=== PATIENT | female | born 1980 | race Caucasian/White ===

== ENCOUNTER 2019-06-28 06:24 | Emergency (ER) | payer SELFPAY ==
--- NOTE | 2019-06-28 07:23 | ER Document Report ---
ED Medical Screen (RME) - General Chief Complaint: Rib Pain Stated Complaint: RIB PAIN Time Seen by Provider: 06/28/19 07:22 Mode of Arrival: Ambulatory Information source: Patient Notes: Patient presents to the emergency department with complaints of left-sided rib pain. Reports she was bending over the couch on Friday night and felt her ribs pop she is had pain since that time. Denies past medical history of injury to the ribs. Patient speaking in complete sentences respiratory rate even unlabored. I have greeted and performed a rapid initial assessment of this patient. A com prehensive ED assessment and evaluation of the patient, analysis of test results and completion of the medical decision making process will be conducted by additional ED providers. Dictation of this chart was performed using voice recognition software; therefore, there may be some unintended grammatical errors. Past Medical History - Social History Frequency of alcohol use: Occasional Physical Exam - Vital signs Vitals: Temp Pulse Resp BP Pulse Ox 98.0 F 65 20 121/64 100 06/28/19 06:28 06/28/19 06:28 06/28/19 06:28 06/28/19 06:28 06/28/19 06:28 Course - Vital Signs Vital signs: Temp Pulse Resp BP Pulse Ox 98.0 F 65 20 121/64 100 06/28/19 06:28 06/28/19 06:28 06/28/19 06:28 06/28/19 06:28 06/28/19 06:28
[2019-06-28] MEDS ORDERED: IBUPROFEN 800 MG TABLET PO ONE (07:45)
--- NOTE | 2019-06-28 08:18 | RADIOLOGY REPORT (SQ) ---
EXAM DESCRIPTION: RIBS LEFT W/PA CHEST COMPLETED DATE/TIME: 06/28/2019 7:45 am REASON FOR STUDY: pain COMPARISON: None. TECHNIQUE: Frontal view of the chest and additional views of the left ribs acquired. NUMBER OF VIEWS: Three view. LIMITATIONS: None. FINDINGS: FRONTAL CXR: No pneumothorax. No pleural effusion. No atelectasis or infiltrates. RIBS: No displaced rib fractures. No lytic or blastic bony lesions. OTHER: No other significant finding. IMPRESSION: No displaced rib fractures or other radiographic abnormality to explain pain. No pneumo thorax or pleural effusion. COMMENT: SITE OF TRAUMA/COMPLAINT MARKED/STAMP COMPLETED: YES. TECHNICAL DOCUMENTATION: JOB ID: [id number] [employer]- All Rights Reserved Reading location - IP/workstation name: [email or web address]
[2019-06-28] MEDS ORDERED: METHOCARBAMOL 500 MG TABLET PO ONE (08:52)
--- NOTE | 2019-06-28 08:52 | ER Document Report ---
HPI - HPI Time Seen by Provider: 06/28/19 07:22 Pain Level: 4 Context: Patient is a 38-year-old female who presents to the emergency department with a chief complaint of chest wall pain. Patient states Friday she was leaning over the back of the couch when she felt a discomfort to the anterior aspect of the left chest wall. Patient reports she felt a pop and heard a crack. Patient states since then she has had extreme tenderness over the area. Patient reports the pain is worse with movement, deep breath or cough. Patient denies fever. Patient denies shortness of breath. - REPRODUCTIVE Reproductive: DENIES: : - MUSCULOSKELETAL Musculoskeletal: REPORTS: Extremity pain Past Medical History - General Information source: Patient - Social History Smoking Status: Never Smoker Frequency of alcohol use: Occasional Lives with: Family Family History: None Patient has suicidal ideation: No Patient has homicidal ideation: No - Past Medical History Cardiac Medical History: Reports: None Pulmonary Medical History: Reports: None EENT Medical History: Reports: None Neurological Medical History: Reports: None Endocrine Medical History: Reports: None Renal/ Medical History: Reports: None Malignancy Medical History: Reports: None GI Medical History: Reports: None Musculoskeletal Medical History: Reports None Skin Medical History: Reports None Psychiatric Medical History: Reports: None Traumatic Medical History: Reports: None Infectious Medical History: Reports: None Surgical Hx: Negative Vertical Provider Document - CONSTITUTIONAL Agree With Documented VS: Yes Exam Limitations: No Limitations General Appearance: No Apparent Distress - HEENT HEENT: Atraumatic, Normocephalic, PERRLA - NECK Neck: Normal Inspection - RESPIRATORY Respiratory: Breath Sounds Normal, No Respiratory Distress - CARDIOVASCULAR Cardiovascular: Regular Rate, Regular Rhythm Notes: Left anterior chest wall pain reproduced with palpation. There is no ecchymosis, edema, deformity, erythema to the left chest wall. - GI/ABDOMEN Gastrointestinal: Abdomen Soft, Abdomen Non-Tender - NEURO Level of Consciousness: Awake, Alert, Appropriate - DERM Integumentary: Warm, Dry, No Rash Course - Re-evaluation Re-evalutation: 06/28/19 08:48 Upon initial evaluation patient sitting upright on stretcher no acute distress. Patient's oxygen level was 100% on room air. Patient's chest x-ray was negative for any pneumothorax, rib fracture, or acute abnormality. Patient's breathing is even and unlabored. We will treat the patient with incentive spirometer, anti-inflammatories and muscle relaxer. - Vital Signs Vital signs: Temp Pulse Resp BP Pulse Ox 98.0 F 65 20 121/64 100 06/28/19 06:28 06/28/19 06:28 06/28/19 06:28 06/28/19 06:28 06/28/19 06:28 - Diagnostic Test Radiology reviewed: Reports reviewed Radiology results interpreted by me: 06/28/19 08:53 Ribs w/Chest X-Ray 06/28/19 07:23 IMPRESSION: No displaced rib fractures or other radiographic abnormality to explain pain. No pneumothorax or pleural effusion. Discharge - Discharge Clinical Impression: Anterior chest wall pain Condition: Stable Disposition: HOME, SELF-CARE Additional Instructions: Today you are seen in the emergency department for chest wall pain. This is often caused by the strain of muscles or joints in the chest during physical activity, direct trauma, coughing or vigorous vomiting. This seems to have occurred when you were leaning over the couch. Typically we treat these with muscle relaxers and anti-inflammatories. You have been prescribed Robaxin which is a muscle relaxer. Do not drive while on these medications as it can be sedating. May use cold packs over the site to help with inflammation and discomfort. Please use your incentive spirometer as educated by the nursing staff. Incentive spirometer will help you prevent to get pneumonia as it is very painful to cough or deep breathe. Chest Wall Pain Your chest pain has been diagnosed as coming from the chest wall. This is often caused by straining the muscles or joints in the chest during physical activity, direct trauma, coughing, or vigorous vomiting. Persons with arthritis are especially prone to this type of pain, due to inflammation of the cartilage joints near the breast bone. Occasionally, no cause can be found. Rest from strenuous physical activity. This kind of chest pain is usually made worse by movement of the chest. Depending on the symptoms, we may prescribe medicine for pain, muscle relaxation, and antiinflammatory effects. If the pain is new, and seems to be due to muscle strain, cold packs can help. Otherwise, apply gentle warmth to the painful area for 15 minutes every hour or two. You should contact the doctor immediately if things change. Further evaluation is needed if you develop a fever or cough, if the nature of the pain changes, or if you become short of breath. Prescriptions: Ibuprofen [Motrin 800 mg Tablet] 800 mg PO Q8H PRN #21 tab PRN Reason: Methocarbamol [Robaxin 500 mg Tablet] 1,000 mg PO TID PRN #21 tablet PRN Reason:
[2019-06-28 09:36] VITALS: BP 128/78
== END 2019-06-28 09:15 | disposition home or self-care (01) ==
LOC: ER 06:24
DX: R07.89 Other chest pain (principal); X58.XXXA Exposure to other specified factors, initial encounter
CPT/HCPCS: 99283